=== PATIENT | female | born 1985 | race Two or more races ===

== ENCOUNTER → 2024-05-21 | Outpatient (CLI) | payer BC, SELFPAY ==
--- NOTE | 2024-05-21 11:30 | XR_ITS ---
Examination: Screening digital mammography, bilateral Computer aided detection 3-D breast Tomosynthesis, bilateral Date and time of exam: May 21, 2024 1115 hours Comparison April 02, 2021 Indication: Screening Technique: Nonmagnified MLO, CC views of the breasts to been obtained, reconstructed from 3-D Tomosynthesis images. R2 computer aided detection program utilized for evaluation of suspicious masses and/or abnormal calcifications. 3-D Tomosynthesis images obtained. Findings: The breasts are heterogeneously dense, which may obscure small masses Benign calcifications No suspicious masses Impression: BI-RADS category II: Benign Findings. Recommend 1 year follow-up mammogram.
== END | disposition home or self-care (01) ==
LOC: CDIM 11:08
PROVIDERS: Referring Provider Physician Assistant Medical; Visit Provider Physician Assistant Medical
DX: Z12.31 Encounter for screening mammogram for malignant neoplasm of breast (principal); R92.323 Mammographic fibroglandular density, bilateral breasts; R92.1 Mammographic calcification found on diagnostic imaging of breast
CPT/HCPCS: 77063; 77067

== ENCOUNTER 2024-08-29 08:36 | Emergency (ER) | payer OTHER, SELFPAY ==
--- NOTE | 2024-08-29 08:41 | EKG_ITS ---
[facility] Test Date: 2024-08-29 Pat Name: LUIS CAMEJO Department: Room: - Gender: Female Director Of Vocational Guidance: : 1985 Requested By: Gordy Miller (SELAM) Order Number: [id number] Reading MD: Gordy Miller (MANAGER SOCIAL) Measurements Intervals [place] Rate: 84 P: 32 NH: 133 QRS: -35 QRSD: 89 T: 32 QT: 354 QTc: 419 Interpretive Statements SINUS RHYTHM WITH SINUS ARRHYTHMIA LEFT AXIS DEVIATION [QRS AXIS < -30] PATTERN CONSISTENT WITH PULMONARY DISEASE POSSIBLE RIGHT VENTRICULAR CONDUCTION DELAY [RSR (QR) IN V1/V2] No previous ECG available for comparison /[id number]/[id number]
[2024-08-29 08:52] VITALS: BP 147/81; PULSE 84; RESP 18; TEMP 37.1; O2SAT 99; BMI 31.0
--- NOTE | 2024-08-29 08:54 | XR_ITS ---
Examination: PA lateral chest 2 views TECHNIQUE: Upright PA lateral chest 2 views Exam date and time: August 29, 2024 0915 hours Comparison April 30, 2006 INDICATIONS: Onset chest pain today FINDINGS: Normal heart size. Lungs are clear. Intact osseous structures IMPRESSION: No active disease
--- NOTE | 2024-08-29 08:54 | PD.EDRME ---
Rapid Medical Screening Exam RME Arrival date/time: 08/29/24 08:36 39-year-old female with no significant medical problems presents to the ER today for concerns for rapid heartbeat and neck pain Chief Complaint: Dizziness
[2024-08-29 09:31] LABS: Basophils % (Auto) 0 % (0-2.5); Eosinophils % (Auto) 1 % (0-10); Hematocrit 37.1 % (36.0-46.0); Hemoglobin 12.2 g/dL (12.0-16.0); Immature Granulocytes % (Auto) 0 % (0-0); Immature Granulocytes Auto 0.01 Thou/mm3 (0.00-0.00); Lymphocytes # (Auto) 1.9 Thou/mm3 (1.0-4.8); Lymphocytes % (Auto) 22 % (10-50); Mean Corpuscular HGB Conc 32.9 g/dl (31.0-37.0); Mean Corpuscular Hemoglobin 28.8 pg (25.0-35.0); Mean Corpuscular Volume 88 fL (80-100); Monocytes # (Auto) 0.6 Thou/mm3 (0.0-0.8); Monocytes % (Auto) 7 % (0-12); Neutrophils # (Auto) 5.8 Thou/mm3 (1.8-7.7); Neutrophils % (Auto) 70 % (37-80); Nucleated Red Blood Cell % 0 /100 WBC (0); Platelet Count 408 Thou/mm3 (140-440); Red Blood Count 4.23 Miln/mm3 (4.00-5.20); White Blood Count 8.4 Thou/mm3 (3.6-11.0)
[2024-08-29 09:38] LABS: Collection Type, Urine Clean Catch
[2024-08-29 09:43] LABS: HCG Qualitative,Urine Negative
[2024-08-29 09:44] LABS: Bilirubin,Urine Negative (Negative); Blood,Urine Trace (Negative); Clarity,Urine Clear (Clear/Hazy); Color,Urine Colorless (Lt Yel-Yel); Culture Indicated,Urine Not Indicated; Glucose, Urine Negative (Negative); Ketones,Urine Negative (Negative); Leukocyte Esterase,Urine Negative (Negative); Nitrite,Urine Negative (Negative); Protein,Urine Negative (Neg - Trace); RBC,Urine 1 /hpf (0-3); Specific Gravity,Urine 1.011 (1.001-1.035); Squamous Epithelial Cell,Urine 1 /hpf (0-5); Urobilinogen,Urine Negative mg/dL (0.0-1.0); WBC,Urine < 1 /hpf (0-5)
[2024-08-29 09:47] LABS: Alanine Aminotransferase 41 U/L (10-49); Albumin, Serum 4.1 gm/dL (3.5-5.0); Albumin/Globulin Ratio 1.1 (1.2-2.2); Alkaline Phosphatase 115 U/L (46-116); Anion Gap 9 (7-16); Aspartate Amino Transferase 28 U/L (0-34); BUN/Creatinine Ratio 15 Ratio (12-20); Bilirubin,Total 0.3 mg/dL (0.3-1.2); Blood Urea Nitrogen 9 mg/dL (9-23); Calcium 9.4 mg/dL (8.3-10.6); Calcium (Corrected) 9.4 mg/dL (8.5-10.1); Carbon Dioxide 26.5 mMol/L (20.0-31.0); Chloride 105 mMol/L (98-107); Creatinine (Component) 0.6 mg/dL (0.6-1.3); Estimated Creatinine Clearance 129.2 mL/min (>60); Free T4 (Free Thyroxine) 4.11 ng/dL (0.89-1.76); Globulin 3.8 gm/dL (2.3-3.5); Glucose 105 mg/dL (74-106); Magnesium 1.9 mg/dL (1.6-2.6); Osmolality,Calculated 278 (275-295); Potassium 4.1 mMol/L (3.4-5.1); Sodium 140 mMol/L (136-145); Thyroid Stimulating Hormone < 0.01 uIU/mL (0.55-4.78); Total Protein 7.9 gm/dL (5.7-8.2); Troponin I < 0.002 ng/mL (0.0-0.045); eGFR > 60 See Note
[2024-08-29 09:51] LABS: Amphetamine/Methamp Scrn,U Negative (Negative); Barbiturate Screen,Urine Negative (Negative); Benzodiazepines Screen,Urine Negative (Negative); Benzoylecgonine Screen, Ur Negative (Negative); Fentanyl Screen,Urine Negative (Negative); Opiate Screen,Urine Negative (Negative); THC Screen,Urine Negative (Negative)
--- NOTE | 2024-08-29 11:58 | PD.EDDIZZY ---
ED Dizzyness RME/HPI General Chief Complaint: Dizziness Stated Complaint: DIZZY, RAPID HR, PAIN R) SIDE OF NECK X 3 WKS Time Seen by Provider: 08/29/24 11:48 Arrival date/time: 08/29/24 08:36 RME / HPI RME / HPI Narrative: 39-year-old female with no significant medical problems presents to the ER today for concerns for rapid heartbeat and neck swelling. Also complained of dizziness. This been ongoing for the last 3 weeks severity of symptoms mild. Patient told me that the highest heart rate she had is around 104. Patient also noticed swelling to the right anterior neck nontender severity mild. Denies any chest pain. Denies any other complaints or medications taken prior to ER visit. Related Data Previous Rx's ?Medication ?Instructions ?Recorded propylthiouracil 50 mg tablet 50 mg PO Q8H #30 tabs 08/29/24 Allergies Allergy/AdvReac Type Severity Reaction Status Date / Time No Known Allergies Allergy Verified 08/29/24 08:39 Review of Systems Review of Systems Narrative Review of Systems: Review of system reviewed and within normal limits except mentioned in HPI ED Exam Narrative Physical exam: VITAL SIGNS: Reviewed. GENERAL APPEARANCE: Alert and interactive, follows commands, no acute distress, HEAD AND FACE: Non-traumatic. ENT: PERRL, pink conjunctivitis, eyelid no trauma, Mucous membrane moist. NECK: Supple, no nuchal rigidity. Small palpable mass noted on the right anterior neck no redness nontender CHEST: No tenderness, no crepitus, no paradoxical movement, no retractions. LUNGS: Clear, well ventilated, symmetric, no rales, no wheezing, no ronchi, no stridor, good breath sounds bilaterally. HEART: Regular rate, regular rhythm, no murmur, no gallops. ABDOMEN: Soft, positive bowel sounds, nondistended, no guarding, nontender, no rebound, no masses, RECTAL: Deferred. GENITAL: Deferred. NEUROLOGICAL: Gross motor function intact sensory function intact, Appropriate for age. MUSCULOSKELETAL: low back nontender, full range of motion. EXTREMITIES: Nontender, full range of motion. SKIN: Color pink, dry, no rash, no lacerations, no abrasions, no contusions. LYMPHATICS: Deferred. Course Quality Measures none Orders Category Date Time Status EKG (ED ONLY) *Do not use* NOW Care 08/29/24 08:41 Completed EKG (ED Only) Stat Exams 08/29/24 08:41 Draft XR chest 2V Stat Exams 08/29/24 08:54 Completed CBC Stat Lab 08/29/24 09:18 Completed Comprehensive Metabolic Panel Stat Lab 08/29/24 09:18 Completed Drug Screen,Urine Stat Lab 08/29/24 09:20 Completed Free T4 (Free Thyroxine) Stat Lab 08/29/24 09:18 Completed HCG Qualitative,Urine Stat Lab 08/29/24 09:20 Completed Mag [Magnesium] Stat Lab 08/29/24 09:18 Completed TSH [Thyroid Stimulating Hormone] Stat Lab 08/29/24 09:18 Completed Troponin I Stat Lab 08/29/24 09:18 Completed UA, C/S IF [Urinalysis, C/S if Indicated] Stat Lab 08/29/24 09:20 Completed Vital Signs Vital signs: Vital Signs Temperature 98.7 F 08/29/24 08:52 Pulse Rate 84 08/29/24 08:52 Respiratory Rate 18 08/29/24 08:52 Blood Pressure 147/81 H 08/29/24 08:52 Pulse Oximetry (%) 99 08/29/24 08:52 Oxygen Delivery Method Room Air 08/29/24 08:52 Dizziness MDM Narrative MDM Narrative:: 39-year-old female with no significant medical problems presents to the ER today for concerns for rapid heartbeat and neck swelling. Also complained of dizziness. This been ongoing for the last 3 weeks severity of symptoms mild. Patient told me that the highest heart rate she had is around 104. Patient also noticed swelling to the right anterior neck nontender severity mild. Denies any chest pain. Denies any other complaints or medications taken prior to ER visit. Patient's workup today is unremarkable except for TSH of less than 0.01 and free T4 of 4.11 indicating hyperthyroidism. Currently patient is not showing any sign of thyroid crisis. On my end of evaluation, patient's only complaint is feeling anxious, severity mild, heart rate of 94/min. EKG showed sinus rhythm, ventricular rate of [address] segment elevation or depression noted. I personally reviewed and interpreted the x-ray of this patient. There is no acute abnormalities found, no infiltrates no pneumothorax no hemothorax normal chest x-ray. Review of other structures was without significant abnormal findings also. I additionally reviewed the radiologist report and agree with the interpretation. Patient will be sent home on PTU. I asked her to closely follow-up with her PCP for outpatient workup of her hyperthyroidism. Patient agrees with the plan Patient data External records reviewed:: None Clinical information provided by:: patient and family Social determinants that could affect healthcare access:: none Patient has the following chronic illnesses:: None How is presenting disease/condition affected by chronic disease/condition?: no chronic disease Evaluation data The following diagnostics were reviewed and interpreted by me:: lab results, radiology exam(s) and EKG tracing(s) Lab and/or radiology exams considered but not ordered:: None Interpretation Summary: See results in MDM Medications / Prescriptions Medications or Prescriptions considered but not ordered:: None Medication administrations:: None Consultations Consultation(s) initiated? (list below): No Diagnosis Dizziness Differential Diagnosis: other (Tachycardic, hypothyroidism, dehydration) Most likely diagnosis given after review of the tests above:: Hyperthyroidism Admission Indicated Admission indicated?: not indicated Explain why admission is indicated or not indicated:: Stable Admission Request Was there a request for admission?: No Disposition Plan Disposition Plan: Discharge Discharge Attestation Discharge Attestation: The patient and all family members were given an opportunity to ask questions and understood the discharge instructions. Discharge instructions specifically effects, indications for sooner follow up or return to the emergency department, and the expected course of current diagnosis. Patient condition: Stable Discharge Plan Plan Patient Disposition: HOME (Self Care) Disposition Comment: Stable Prescriptions/Referrals Prescriptions/Med Rec: New propylthiouracil 50 mg tablet 50 mg PO Q8H Qty: 30 0RF Referrals: No Primary/Family,Physician [Primary Care Provider] - In 1 week Problem List Clinical Impression: Hyperthyroidism Patient/Caregiver Discharge Instructions Education Materials: ED Hyperthyroidism Additional Instructions: Thank you for the opportunity for serving you today. You are stable for discharged . You are advised to: Follow-up with your PCP in 1 to 2 days regarding your outpatient workup for new diagnosis of hyperthyroidism Return to ED for worsening of symptoms Increase oral fluids Take medication as prescribed Print Language: Eritrean Stand Alone Forms: Mary Award Info., Patient Portal Info Letter PA/KULWINDER Supervising Physician STEVENSON/KULWINDER Supervising Physician: MD Juan Carlos
[2024-08-29 12:03] VITALS: BP 127/90; PULSE 92; RESP 16; TEMP 36.3; O2SAT 100
[2024-08-29 13:16] VITALS: BP 120/82; PULSE 92; RESP 16; O2SAT 97
== END 2024-08-29 13:16 | disposition home or self-care (01) ==
PROVIDERS: Nurse Practitioner Primary Care; Emergency Provider Family Medicine
DX: E05.90 Thyrotoxicosis, unspecified without thyrotoxic crisis or storm (principal)
CPT/HCPCS: 36415; 71046; 80053; 80307; 81001; 81025; 83735; 84439; 84443; 84484; 85025; 93005; 99283

== ENCOUNTER → 2024-09-05 | Outpatient (CLI) | payer OTHER, SELFPAY ==
[2024-09-05 09:33] LABS: Glucose Estimated Average 114 mg/dL (80-131); Hemoglobin A1C 5.6 % Hgb (4.8-6.0)
[2024-09-05 11:59] LABS: Cardiac Risk Estimate 2.6 RATIO (3.7-5.6); Cholesterol 100 mg/dL (132-200); Free T3 9.3 pg/mL (2.3-4.2); Free T4 (Free Thyroxine) 3.68 ng/dL (0.89-1.76); HDL Cholesterol 38 mg/dL (40-60); LDL Cholesterol,Calculated 49 mg/dL (0-130); Thyroid Stimulating Hormone < 0.01 uIU/mL (0.55-4.78); Triglycerides 63 mg/dL (30-150)
== END | disposition home or self-care (01) ==
LOC: COPL 07:22
PROVIDERS: PCP Family Medicine; Referring Provider Nurse Practitioner Family; Visit Provider Nurse Practitioner Family
DX: Z13.1 Encounter for screening for diabetes mellitus (principal); Z13.220 Encounter for screening for lipoid disorders; E05.90 Thyrotoxicosis, unspecified without thyrotoxic crisis or storm
CPT/HCPCS: 36415; 80061; 83036; 84439; 84443; 84481

== ENCOUNTER → 2024-10-17 | Outpatient (CLI) | payer OTHER, SELFPAY ==
--- NOTE | 2024-10-17 15:30 | XR_ITS ---
Examination: Thyroid sonography complete TECHNIQUE: Grayscale sonographic images thyroid lobes Exam date and time: October 17, 2024 at 1536 hours INDICATIONS: Diagnosis hypothyroidism 2 months ago on laboratory examination. FINDINGS: Right thyroid 4.9 cm Midpole cyst 4 x 4 millimeter No solid nodules Left thyroid 3.6 cm Midpole cyst 13 x 14 mm No thyroid nodules IMPRESSION: Benign thyroid cysts Given the patient's presentation, consider correlation with oral I-123 thyroid uptake and scan
== END | disposition home or self-care (01) ==
PROVIDERS: PCP Nurse Practitioner Family; Referring Provider Nurse Practitioner Family; Visit Provider Nurse Practitioner Family
DX: E04.2 Nontoxic multinodular goiter (principal)
CPT/HCPCS: 76536

== ENCOUNTER → 2024-10-18 | Outpatient (CLI) | payer OTHER, SELFPAY ==
[2024-10-18 10:06] LABS: Free T3 2.2 pg/mL (2.3-4.2); Free T4 (Free Thyroxine) 0.44 ng/dL (0.89-1.76); Thyroid Stimulating Hormone 39.17 uIU/mL (0.55-4.78)
== END | disposition home or self-care (01) ==
LOC: COPL 07:41
PROVIDERS: PCP Nurse Practitioner Family; Referring Provider Nurse Practitioner Family; Visit Provider Nurse Practitioner Family
DX: E05.90 Thyrotoxicosis, unspecified without thyrotoxic crisis or storm (principal)
CPT/HCPCS: 36415; 84439; 84443; 84481

== ENCOUNTER → 2024-11-01 | Outpatient (CLI) | payer OTHER, SELFPAY ==
[2024-11-01 09:12] LABS: Free T4 (Free Thyroxine) 0.98 ng/dL (0.89-1.76); Thyroid Stimulating Hormone 7.23 uIU/mL (0.55-4.78)
== END | disposition home or self-care (01) ==
LOC: COPL 07:50
PROVIDERS: PCP Nurse Practitioner Family; Referring Provider Student in an Organized Health Care Education/Training Program; Visit Provider Student in an Organized Health Care Education/Training Program
DX: E05.90 Thyrotoxicosis, unspecified without thyrotoxic crisis or storm (principal)
CPT/HCPCS: 36415; 84439; 84443

== ENCOUNTER → 2024-11-30 | Outpatient (CLI) | payer OTHER, SELFPAY ==
[2024-11-30 08:47] LABS: Free T3 2.9 pg/mL (2.3-4.2); Thyroid Stimulating Hormone 10.51 uIU/mL (0.55-4.78)
== END | disposition home or self-care (01) ==
LOC: COPL 07:57
PROVIDERS: PCP Student in an Organized Health Care Education/Training Program; Referring Provider Student in an Organized Health Care Education/Training Program; Visit Provider Student in an Organized Health Care Education/Training Program
DX: E05.90 Thyrotoxicosis, unspecified without thyrotoxic crisis or storm (principal)
CPT/HCPCS: 36415; 84439; 84443; 84481

== ENCOUNTER → 2025-01-10 | Outpatient (CLI) | payer OTHER, SELFPAY ==
[2025-01-10 09:02] LABS: Free T3 3.0 pg/mL (2.3-4.2); Free T4 (Free Thyroxine) 1.20 ng/dL (0.89-1.76); Thyroid Stimulating Hormone 5.18 uIU/mL (0.55-4.78)
[2025-01-17 06:18] LABS: Thyrotropin-Binding Inhib Ig* <1.00 IU/L (< OR = 2.00)
== END | disposition home or self-care (01) ==
LOC: COPL 07:37
PROVIDERS: PCP Family Medicine; Referring Provider Student in an Organized Health Care Education/Training Program; Visit Provider Student in an Organized Health Care Education/Training Program
DX: E05.90 Thyrotoxicosis, unspecified without thyrotoxic crisis or storm (principal)
CPT/HCPCS: 36415; 83519; 84439; 84443; 84481

== ENCOUNTER → 2025-03-15 | Outpatient (CLI) | payer OTHER, SELFPAY ==
[2025-03-15 09:46] LABS: Glucose Estimated Average 108 mg/dL (80-131); Hemoglobin A1C 5.4 % Hgb (4.8-6.0)
[2025-03-15 09:51] LABS: Free T3 3.1 pg/mL (2.3-4.2); Free T4 (Free Thyroxine) 1.20 ng/dL (0.89-1.76); Glucose,Fasting 108 mg/dL (74-106); Thyroid Stimulating Hormone 2.54 uIU/mL (0.55-4.78)
[2025-03-15 09:59] LABS: Vitamin D 25 Hydroxy Total 27.3 ng/mL (7.3-40.2)
[2025-03-22 06:57] LABS: TSI, Thyroid Stimulating Ig* <89 % baseline (<140); Thyroid Peroxidase Antibodies* <1 IU/mL (<9); Zinc, Plasma* 70 mcg/dL (60-130)
== END | disposition home or self-care (01) ==
LOC: COPL 08:13
PROVIDERS: PCP Student in an Organized Health Care Education/Training Program; Referring Provider Internal Medicine Endocrinology, Diabetes & Metabolism; Visit Provider Internal Medicine Endocrinology, Diabetes & Metabolism
DX: E05.90 Thyrotoxicosis, unspecified without thyrotoxic crisis or storm (principal)
CPT/HCPCS: 36415; 82306; 82947; 83036; 84439; 84443; 84445; 84481; 84630; 86376

== ENCOUNTER → 2025-04-25 | Outpatient (CLI) | payer OTHER, SELFPAY ==
[2025-04-25 12:26] LABS: Basophils # (Auto) 0.0 Thou/mm3 (0.0-0.2); Basophils % (Auto) 1 % (0-2.5); Eosinophils # (Auto) 0.1 Thou/mm3 (0.0-0.5); Eosinophils % (Auto) 1 % (0-10); Hematocrit 40.2 % (36.0-46.0); Hemoglobin 13.3 g/dL (12.0-16.0); Immature Granulocytes Auto 0.01 Thou/mm3 (0.00-0.00); Lymphocytes # (Auto) 2.6 Thou/mm3 (1.0-4.8); Lymphocytes % (Auto) 42 % (10-50); Mean Corpuscular HGB Conc 33.1 g/dl (31.0-37.0); Mean Corpuscular Hemoglobin 30.4 pg (25.0-35.0); Mean Corpuscular Volume 92 fL (80-100); Monocytes # (Auto) 0.4 Thou/mm3 (0.0-0.8); Monocytes % (Auto) 6 % (0-12); Neutrophils # (Auto) 3.2 Thou/mm3 (1.8-7.7); Neutrophils % (Auto) 50 % (37-80); Nucleated Red Blood Cell # 0.00 Thou/mm3 (0.00-0.00); Nucleated Red Blood Cell % 0 /100 WBC (0); Platelet Count 354 Thou/mm3 (140-440); RDW Standard Deviation 49.1 fL (36.4-46.3); Red Blood Count 4.37 Miln/mm3 (4.00-5.20); White Blood Count 6.3 Thou/mm3 (3.6-11.0)
[2025-04-25 12:45] LABS: Alanine Aminotransferase 12 U/L (10-49); Albumin, Serum 4.3 gm/dL (3.5-5.0); Alkaline Phosphatase 80 U/L (46-116); Anion Gap 6 (7-16); Aspartate Amino Transferase 17 U/L (0-34); BUN/Creatinine Ratio 13 Ratio (12-20); Bilirubin,Direct 0.1 mg/dL (0.0-0.3); Bilirubin,Total 0.4 mg/dL (0.3-1.2); Blood Urea Nitrogen 10 mg/dL (9-23); Calcium 9.1 mg/dL (8.3-10.6); Carbon Dioxide 28.6 mMol/L (20.0-31.0); Chloride 105 mMol/L (98-107); Creatinine (Component) 0.8 mg/dL (0.6-1.3); Free T3 3.1 pg/mL (2.3-4.2); Free T4 (Free Thyroxine) 1.30 ng/dL (0.89-1.76); Glucose 96 mg/dL (74-106); Osmolality,Calculated 278 (275-295); Potassium 4.4 mMol/L (3.4-5.1); Sodium 140 mMol/L (136-145); Thyroid Stimulating Hormone 3.64 uIU/mL (0.55-4.78); Total Protein 7.2 gm/dL (5.7-8.2); eGFR > 60 See Note
[2025-04-25 12:48] LABS: Vitamin D 25 Hydroxy Total 30.8 ng/mL (7.3-40.2)
== END | disposition home or self-care (01) ==
LOC: COPL 10:15
PROVIDERS: PCP Student in an Organized Health Care Education/Training Program; Referring Provider Internal Medicine Endocrinology, Diabetes & Metabolism; Visit Provider Internal Medicine Endocrinology, Diabetes & Metabolism
DX: E05.90 Thyrotoxicosis, unspecified without thyrotoxic crisis or storm (principal)
CPT/HCPCS: 36415; 80048; 80076; 82306; 84439; 84443; 84481; 85025